=== PATIENT | female | born 1990 | race Caucasian/White ===

== ENCOUNTER 2016-07-07 00:25 | Emergency (ER) | payer MEDICAID ==
[~2016-07-07] VITALS: Ht 160 cm; Wt 58.5 kg
[2016-07-07 00:25] VITALS: Ht 160 cm; Wt 58.5 kg
[~2016-07-07 00:25] MED LIST: CYCL-375 PO; HYDR-3989 PO; IBUP-1724 PO; MELO-273 PO; METH500T6 PO
--- NOTE | 2016-07-07 00:25 | NUR ---
DRESSING APPLIED PACKAGE OF 4X4 DRESSING APPLIED, WRAPPED WITH COBAN FOR PRESSURE. SATURATED THROUGH IN A MATTER OF MINUTES WITHOUT DIRECT PRESSURE. WOUND RE-DRESSED WITH SECOND PACKAGE OF 4X4S AND ABD, WRAPPED WITH NEW COBAN, MANUAL PRESSURE APPLIED.
--- NOTE | 2016-07-07 00:25 | NUR ---
BLACKJACK DEALER BLACKJACK DEALER <3 SEC AT THIS TIME. PT ABLE TO MOVE ALL FINGERS.
--- OUTSIDE RECORDS SUMMARY | 2016-07-07 00:29 | XMS REPORT ---
Author Author GENERATED, SYSTEM Organization Unknown Address Unknown Phone Unavailable Care Team Providers Care Patient Financial Counselor Name Role Phone [facility] Unavailable Reason For Visit Chief Complaint CHEST CONGESTION Social History Functional Status Vital Signs Results Problems Encounter Diagnosis No relevant problems exist. Encounters Encounter Diagnosis No relevant problems exist. Plan of Care Procedures * Completed , on 04/29/2012 12:00 AM * Completed , on 04/29/2012 12:00 AM Immunizations No immunizations administered or ordered. Hospital Course Hospital Discharge Instructions Allergies, Adverse Reactions, Alerts * Latex Allergy has not been assessed. * IV Contrast Allergy has not been assessed. Medication Medication reconciliation has not been performed.
--- OUTSIDE RECORDS SUMMARY | 2016-07-07 00:30 | XMS REPORT | Summary of Care ---
Author Author Sebastian Dominique M.D. 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, 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 Thoracic back pain (724.1, M54.6) Status: Active Chronic tonsillitis (474.00, J35.01) Status: Active Esophageal reflux (530.81, K21.9) Status: Active Chronic nasopharyngitis (472.2, J31.1) Status: Active Adenotonsillar hypertrophy (474.10, J35.3) Status: Active Nasal folliculitis (704.8, L72.9) Status: Active Medications Name Dates Details Lyrica 150 MG Oral Capsule * Start 24-Nov-2015 Active Tylenol 325 MG Oral Tablet * Refills: 0 * Start 24-Nov-2015 Active Ibuprofen 200 MG Oral Tablet * Refills: 0 * Start 24-Nov-2015 Active Mupirocin 2 % External Ointment APPLY A SMALL AMOUNT WITH A COTTON SWAB TO AFFECTED NOSTRIL DAILY FOR 2 WEEKS * Quantity: 1 Refills: 0 Sebastian Dominique M.D. Start 24-Nov-2015 Active 22 GM Tube Sulfamethoxazole-Trimethoprim 800-160 MG Oral Tablet 1 po BID * Quantity: 28 Refills: 0 Sebastian Dominique M.D. Start 27-Nov-2015 Active Pantoprazole Sodium 40 MG Oral Tablet Delayed Release TAKE ONE TABLET 30 MINUTES PRIOR TO BREAKFAST EVERY DAY * Quantity: 30 Refills: 5 Sebastian Dominique M.D. Start 22-Dec-2015 Active Allergies and Adverse Reactions Name Dates Details Codeine Derivatives (Allergy) Status: Active Past Medical History Name Dates Details History of amenorrhea (V13.29, Z87.42) Status: Resolved History of Anal fissure (565.0, K60.2) Status: Resolved History of Hair loss (704.00, L65.9) Status: Resolved Procedures Procedure Dates Details History of Ear Pressure Equalization Tube, Insertion, General Anesthesi History of Ear Surgery Procedures not documented Immunization Name Dates Details Immunizations not documented Family History Name Dates Details Family history of mental disorder (V17.0, Z81.8) Status: Active Social History Name Dates Details - Status: Name Dates Details Former smoker Vital Signs Date Test Result Details 24-Nov-2015 15:58 Temperature 98.2 f Status: Comments: Method: Height 63 in Status: Weight 160.25 lb Status: Body Mass Index Calculated 28.39 kg/m2 Status: Body Surface Area Calculated 1.76 m2 Status: Results Date Description Value Details 27-Nov-2015 12:54 NASAL CAVITY CULTURE [id number] Comments: Spotlight At [facility], [id number] [place] [address], [phone], Info Analyst: Leonel Preston D.O., MPHQuest Collection Date/Time: [id number] Results Received Date/Time: [id number] Reported Date/Time: [id number] performed at: [facility] [address] [place], [address], Info Analyst: Leonel Preston D.O., MPHQuest Collection Date/Time: [id number] Results Received Date/Time: Reported Date/Time: CULTURE, FORESTRY FARM LABORER/NASAL SEE NOTE (Abnormal) Comments: CULTURE, FORESTRY FARM LABORER/NASAL MICRO NUMBER: [id number] TEST STATUS: FINAL SPECIMEN SOURCE: NASOPHARYNX SPECIMEN QUALITY: ADEQUATE RESULT: Moderate growth of Staphylococcus aureus COMMENT: Normal oropharyngeal maddie also present. S.aureus ---- INT LATOSHA CIPROFLOXACIN S <=0.5 CLINDAMYCIN S <=0.25 ERYTHROMYCIN S <=0.25 GENTAMICIN S <=0.5 LEVOFLOXACIN S <=0.12 MOXIFLOXACIN S <=0.25 OXACILLIN S <=0.25 1 TETRACYCLINE S <=1 TRIMETHOPRIM/SULFA S <=10 VANCOMYCIN S <=0.5S=Susceptible I=Intermediate R=Resistant *= Not TestedNR=Not Reported NN=See Therapy CommentsTHERAPY COMMENTS Note 1: Oxacillin-susceptible staphylococci are susceptible to other penicillinase-stable penicillins (e.g. Methicillin, Nafcillin), beta- lactam/beta-lactamase inhibitor combinations, and cephems with staphylococcal indications, including Cefazolin.[KS]----- Plan of Care Name Dates Details Planned Observations Planned Goals not documented Planned Encounters Appointment; Provider: Sebastian Dominique M.D. On 26-Jan-2016 15:00 Interventions Provided Medication Changes* Pantoprazole Sodium 40 MG Oral Tablet Delayed Release - Start Instructions Name Dates Details Instructions not documented Encounters Appointment; Sebastian Dominique M.D. Encounter Diagnosis: Problem not documented On 24-Nov-2015 15:00 Appointment; Stefani Marroquin A.P.R.N. Encounter Diagnosis: Problem not documented On 16-Jul-2015 11:35 Appointment; Peggy Boland P.TEddie Encounter Diagnosis: Problem not documented On 11-Jun-2015 09:00 Appointment; Marcus Real P.T. Encounter Diagnosis: Problem not documented On 05-Jun-2015 15:00 Appointment; [facility] D.O. Encounter Diagnosis: Problem not documented On 03-Jun-2015 14:00 Appointment; Rene Duncan D.O. Encounter Diagnosis: Problem not documented On 26-May-2015 15:15 Appointment; [facility] D.O. Encounter Diagnosis: Problem not documented On 03-May-2014 10:45 Appointment; [facility] D.O. Encounter Diagnosis: Problem not documented On 05-Apr-2014 13:45 Appointment; [facility] D.O. Encounter Diagnosis: Problem not documented On 08-Mar-2014 14:45 Appointment; [facility] D.O. Encounter Diagnosis: Problem not documented On 05-Mar-2014 15:45 Appointment; [facility] D.O. Encounter Diagnosis: Problem not documented On 19-Feb-2014 13:30 Appointment; [facility] D.O. Encounter Diagnosis: Problem not documented On 21-Jan-2014 13:00 Appointment; [facility] D.O. Encounter Diagnosis: Problem not documented On 07-Jan-2014 14:45
--- OUTSIDE RECORDS SUMMARY | 2016-07-07 00:30 | XMS REPORT | Summary of Care ---
Author Author Stefani Marroquin APRN Organization Unknown Address [address] [place] [id number] Phone Unavailable Care Team Providers Care Resistance Welder Name Role Phone Stefani Marroquin APRN Unavailable Unavailable [facility] Unavailable Unavailable Unavailable Functional Status Functional Status Health Issues* Name Dates Details Functional status health issues are not documented Status: Cognitive Status Health Issues* Name Dates Details Cognitive status health issues are not documented Status: Problems Name Dates Details Chronic headaches (784.0, R51) Status: Active Migraine (346.90, G43.909) Status: Active Lumbosacral strain, initial encounter (846.0, S39.012A) Status: Active 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 Quantity: 14 Stefani Marroquin APRN* Started 26-May-2015 ActiveMeloxicam 7.5 MG Oral Tablet TAKE 1 TABLET DAILY NEEDED * Quantity: 30 Refills: 0 Stefani Marroquin APRN* Started 03-Jun-2015 ActiveMethocarbamol 500 MG Oral Tablet TAKE 1 TABLET BY MOUTH EVERY 8 HOURS NEEDED FOR SPASM * Quantity: 30 Refills: 0 Stefani Marroquin APRN* Started 03-Jun-2015 Active Allergies and Adverse Reactions Name Dates Details Codeine Derivatives Status: Active Past Medical History Name Dates Details History of amenorrhea (V13.29, Z87.42) Status: Resolved History of Anal fissure (565.0, K60.2) Status: Resolved History of Hair loss (704.00, L65.9) Status: Resolved Procedures Procedure Dates Details Procedures not documented Immunization Name Dates Details Immunizations not documented Social History Name Dates Details Smoking Status* Former smoker Vital Signs Date Test Result Details 16-Jul-2015 11:42 BP Systolic 122 mm[Hg] Status: BP Diastolic 88 mm[Hg] Status: Temperature 98.6 f Status: Heart Rate 126 /min Status: Respiration Rate 16 /min Status: O2 SAT 98 % Status: Results Date Description Value Details Results not documented Plan of Care Planned Observations* Name Dates Details Planned Goals not documented Goal Instructions * Instructions not documented Encounters Appointment; Stefani Marroquin Encounter Diagnosis: Problem not documented On 16-Jul-2015 11:35 Appointment; Peggy Boland Encounter Diagnosis: Problem not documented On 11-Jun-2015 09:00 Appointment; Marcus Real Encounter Diagnosis: Problem not documented On 05-Jun-2015 15:00 Appointment; [facility] Encounter Diagnosis: Problem not documented On 03-Jun-2015 14:00 Appointment; Rene Duncan Encounter Diagnosis: Problem not documented On 26-May-2015 15:15 Appointment; [facility] Encounter Diagnosis: Problem not documented On 03-May-2014 10:45 Appointment; [facility] Encounter Diagnosis: Problem not documented On 05-Apr-2014 13:45 Appointment; [facility] Encounter Diagnosis: Problem not documented On 08-Mar-2014 14:45 Appointment; [facility] Encounter Diagnosis: Problem not documented On 05-Mar-2014 15:45 Appointment; [facility] Encounter Diagnosis: Problem not documented On 19-Feb-2014 13:30 Appointment; [facility] Encounter Diagnosis: Problem not documented On 21-Jan-2014 13:00 Appointment; [facility] Encounter Diagnosis: Problem not documented On 07-Jan-2014 14:45 Appointment; [facility] Encounter Diagnosis: Problem not documented On 07-Dec-2013 13:30 Appointment; [facility] Encounter Diagnosis: Problem not documented On 28-Nov-2013 09:30 Appointment; Amber Chacon Encounter Diagnosis: Problem not documented On 20-Nov-2013 12:30 Appointment; [facility] Encounter Diagnosis: Problem not documented On 14-Nov-2013 10:45 Appointment; [facility] Encounter Diagnosis: Problem not documented On 06-Nov-2013 15:45 Appointment; [facility] Encounter Diagnosis: Problem not documented On 02-Nov-2013 13:15
--- OUTSIDE RECORDS SUMMARY | 2016-07-07 00:30 | XMS REPORT | Continuity of Care Document ---
Author Author [facility] Organization [facility] Address Unknown Phone Unavailable Allergies Active Description Code Type Severity Reaction Onset Reported/Identified Relationship to Patient Clinical Status Yes codeine CODEINE Drug Allergy Unknown N/A 03/18/2008 Yes No Known Contrast Allergies No Known Contrast Allergies Drug Allergy Unknown N/A 03/18/2008 Yes No Known Food Allergies No Known Food Allergies Drug Allergy Unknown N/A 03/18/2008 Yes NO KNOWN LATEX ALLERGY/SENSITI NO KNOWN LATEX ALLERGY/SENSITI Drug Allergy Unknown N/A 2008 Yes codeine codeine Drug Allergy Unknown ITCHING, RASH 10/12/2013 Medications Problems Date Dx Coded Attending Type Code Diagnosis Diagnosed By 10/18/2013 Byron HINDS, Navin Moody 648.91 OTH CURR COND-DELIVERED 10/18/2013 Navin Matthews MD 648.93 OTH CURR COND-ANTEPARTUM 10/18/2013 Navin Matthews MD 664.81 OB PERINEAL TRAU NEC-DEL 10/18/2013 Navin Matthews MD V02.51 GROUP B STREPT CARRIER/SUSPECTED CARRIER 10/18/2013 Navin Matthews MD V14.5 HX-NARCOTIC ALLERGY 10/18/2013 Navin Matthews MD V27.0 DELIVER-SINGLE LIVEBORN 12/25/2014 Navin Matthews MD O48.0 POST-TERM 12/25/2014 Navin Matthews MD O70.1 SECOND DEGREE PERINEAL LACERATION DURING DELIVERY 12/25/2014 Navin Matthews MD Z34.93 ENCNTR FOR SUPRVSN OF NORMAL PREG, UNSP, THIRD TRIMESTER 12/25/2014 Navin Matthews MD Z37.0 SINGLE LIVE 12/25/2014 Navin Matthews MD Z3A.41 41 WEEKS GESTATION OF Procedures Code Description Performed By Performed On 75.69 REPAIR OB LACERATION NEC Navin Matthews MD 10/18/2013 [id number] REPAIR FEMALE PERINEUM, EXTERNAL APPROACH Byron HINDS, Navin Price 12/25/2014 [id number] DELIVERY OF PRODUCTS OF CONCEPTION, EXTERNAL APPRO Byron HINDS, Navin Price 12/25/2014 Results Test Result Range CBC - 10/17/13 22:30 MEAN CELL HGB 31.3 pg 27.0-33.0 MEAN CELL HGB CONCENTRATION 33.2 g/dL 32.0-37.0 MEAN CELL VOLUME 94.2 fl 80.0-100.0 RED BLOOD CELL 3.64 m/cumm 4.00-6.00 RED CELL DISTRIBUTION WIDTH 15.1 % 11.0- 15.6 WHITE BLOOD CELL 10.6 k/cumm 5.0-10.0 HEMOGLOBIN 11.4 gm/dL 12.0-16.0 HEMATOCRIT 34.3 % 37.0-47.0 PLATELET COUNT 256 k/cumm 150-400 CORD VENOUS BLOOD GAS - 10/18/13 11:45 VENOUS CORD BLOOD BASE EXCESS -2.1 meq/L -5.8-0.7 COMMENT VENOUS VENOUS CORD BLOOD HCO3 22.9 meq/L 17.4- 25.4 VENOUS CORD BLOOD PCO2 40 mm Hg 28-57 VENOUS CORD BLOOD PH 7.38 7.23-7.46 VENOUS CORD BLOOD PO2 33 mm Hg 15-42 VENOUS CORD BLOOD O2 SAT 73 % 14-75 CORD ARTERIAL BLOOD GAS - 10/18/13 11:45 ARTERIAL CORD BLD BASE EXCESS -2.3 meq/L -7.6-1.3 COMMENT ARTERIAL ARTERIAL CORD BICARBONATE 26.2 meq/L 16.0 -27.1 ARTERIAL CORD BLOOD PCO2 61 mm Hg 32-69 ARTERIAL CORD BLOOD PH 7.25 7.14-7.40 ARTERIAL CORD BLOOD PO2 15.9 mm Hg 8-33 ARTERIAL CORD BLOOD O2 SAT 20 % 5-59 HEMOGLOBIN - 10/18/13 15:18 MEAN CELL VOLUME 91.5 fl 80.0-100.0 HEMOGLOBIN 10.3 gm/dL 12.0-16.0 CBC - 12/25/14 01:45 MEAN CELL HGB 30.5 pg 27.0-33.0 MEAN CELL HGB CONCENTRATION 33.4 g/dL 32.0-37.0 MEAN CELL VOLUME 91.1 fl 80.0-100.0 RED BLOOD CELL 3.71 m/cumm 4.00-6.00 RED CELL DISTRIBUTION WIDTH 13.2 % 11.0- 15.6 WHITE BLOOD CELL 13.8 k/cumm 5.0-10.0 HEMOGLOBIN 11.3 gm/dL 12.0-16.0 HEMATOCRIT 33.8 % 37.0-47.0 PLATELET COUNT 288 k/cumm 150-400 CORD ARTERIAL BLOOD GAS - 12/25/14 03:07 ARTERIAL CORD BLD BASE EXCESS -0.8 meq/L -7.6-1.3 COMMENT ARTERIAL ARTERIAL CORD BICARBONATE 26.5 meq/L 16.0 -27.1 ARTERIAL CORD BLOOD PCO2 54 mm Hg 32-69 ARTERIAL CORD BLOOD PH 7.31 7.14-7.40 ARTERIAL CORD BLOOD PO2 21.2 mm Hg 8-33 ARTERIAL CORD BLOOD O2 SAT 37 % 5-59 CORD VENOUS BLOOD GAS - 12/25/14 03:07 VENOUS CORD BLOOD BASE EXCESS -1.3 meq/L -5.8-0.7 COMMENT VENOUS VENOUS CORD BLOOD HCO3 23.4 meq/L 17.4- 25.4 VENOUS CORD BLOOD PCO2 39 mm Hg 28-57 VENOUS CORD BLOOD PH 7.39 7.23-7.46 VENOUS CORD BLOOD PO2 37 mm Hg 15-42 VENOUS CORD BLOOD O2 SAT 80 % 14-75 HEMOGLOBIN - 12/25/14 09:23 MEAN CELL VOLUME 90.2 fl 80.0-100.0 HEMOGLOBIN 9.5 gm/dL 12.0-16.0 CBC W/DIFF - 02/14/16 20:25 BASOPHIL # 0.2 k/cumm 0.0-0.2 BASOPHIL % 1 % 0-1 EOSINOPHIL # 0.2 k/cumm 0.1-0.5 EOSINOPHIL % 1 % 2-4 GRANULOCYTE # 13.5 k/cumm 2.0-9.0 LYMPHOCYTE # 5.2 k/cumm 1.0-4.0 LYMPHOCYTE % 26 % 20-30 MEAN CELL HGB 30.6 pg 27.0-33.0 MEAN CELL HGB CONCENTRATION 33.1 g/dL 32.0-37.0 MEAN CELL VOLUME 92.4 fl 80.0-100.0 MONOCYTE # 0.8 k/cumm 0.1-1.0 MONOCYTE % 4 % 4-6 RED BLOOD CELL 4.97 m/cumm 4.00-6.00 RED CELL DISTRIBUTION WIDTH 11.8 % 11.0- 15.6 WHITE BLOOD CELL 20.1 k/cumm 5.0-10.0 HEMOGLOBIN 15.2 gm/dL 12.0-16.0 HEMATOCRIT 45.9 % 37.0-47.0 PLATELET COUNT 498 k/cumm 150-400 REACTIVE LYMPH NOTED MANUAL DIFF(R) - 02/14/16 20:25 BAND % 4 % 0-10 DIFFERENTIAL MANUAL METAMYELOCYTE % 1 % RBC MORPH NOTED SEGMENTED NEUTROPHIL % 63 % 50-70 CHEM/HEM PROFILE-BEDSIDE - 02/14/16 20:26 POTASSIUM 3.9 mmol/L 3.5-5.3 METHOD Bedside ANION GAP 16 mmol/L 10-20 METHOD Bedside GLUCOSE 105 mg/dL 70-99 BLOOD UREA NITROGEN 17 mg/dL 7-20 CREATININE 0.7 mg/dL 0.6-1.0 HEMOGLOBIN 16.0 gm/dL 12.0-16.0 HEMATOCRIT 47.0 % 37.0-47.0 SODIUM 137 mmol/L 135-148 CHLORIDE 96 mmol/L 98-110 CARBON DIOXIDE 30 mmol/L 21-32 CALCIUM IONIZED 4.6 mg/dL 4.5-5.3 Encounters ACCT No. Visit Date/Time Discharge Status Pt. Type Provider Facility Loc./Unit Complaint [id number] 02/14/2016 23:14:00 2015 14:13:00 DIS Outpatient Gómez HINDS, [facility] W.O8TN [id number] 12/25/2014 00:58:00 2014 15:38:00 DIS Inpatient Byron HINDS, [facility] W.5WH [id number] 12/17/2014 21:27:00 2014 05:23:00 DIS Outpatient Byron HINDS, [facility] W.2WW [id number] 10/18/2013 05:05:00 2013 14:30:00 DIS Inpatient Byron HINDS, [facility] W.4TN [id number] 10/11/2013 23:09:00 2013 02:12:00 DIS Emergency Byron HINDS, [facility] W.2WOBED [id number] 09/18/2013 16:28:00 2013 21:39:00 DIS Emergency Byron HINDS, Navin [facility] W.2WOBED [id number] 08/28/2013 12:28:00 2013 12:28:00 DIS Outpatient Flora HINDS, [facility] WJEEVAN
--- OUTSIDE RECORDS SUMMARY | 2016-07-07 00:30 | XMS REPORT | Summary of Care ---
Author Author Sebastian Dominique M.D. Unknown Address Unknown Phone Unavailable Care Team Providers Care Electronics Warfare Technician Name Role Phone Catina Paula, Angelina Unavailable [...] Active Esophageal reflux (530.81, K21.9) Status: Active Nasal folliculitis (704.8, L72.9) Status: Active Chronic nasopharyngitis (472.2, J31.1) Status: Active Adenotonsillar hypertrophy (474.10, J35.3) Status: Active Medications Name Dates Details Lyrica [...] Insertion, General Anesthesi History of Ear Surgery PROTIME PANEL 7000 Ordered: 26-Jan-2016 PTT 7500 Ordered: 26-Jan-2016 Immunization Name Dates Details Immunizations not documented Family History Name Dates Details Family history of mental disorder (V17.0, Z81.8) Status: Active Social History Name Dates Details - Status: Name Dates Details Former smoker Vital Signs Date Test Result Details No Known Vitals to report Results Date Description Value Details 26-Jan-2016 16:05 CBC w/ Auto Diff 7150 Comments: DOS 02/10/16 AT [facility] WBC 10.1 K/uL Range: 4.5-11.0 RBC 4.53 mil/uL Range: 3.60-5.00 HGB 14.5 g/dL Range: 12.0-16.0 HCT 41.6 % Range: 36.0-48.0 MCV 91.9 fL Range: 80.0-99.0 MCH 32.0 pg Range: 27.3-32.5 MCHC 34.8 % Range: 32.0-36.0 RDW 13.0 % Range: 11.6-14.8 PLATELETS 369 K/uL Range: 150-400 MPV 6.9 fL Range: 6.0-11.0 %NEUTRO 64.8 % Range: 37.0-80.0 %LYMPHS 22.0 % Range: 13.0-50.0 %MONO 6.8 % Range: 0.0-12.0 %EOS 2.9 % Range: 0.0-7.0 %BASO 0.8 % Range: 0.0-2.5 %XIANG 2.7 % Range: 0.0-5.0 NEUTRO 6.5 K/uL Range: 2.0-6.9 LYMPHS 2.2 K/uL Range: 0.6-3.4 MONOS 0.7 K/uL Range: 0.0-0.9 EOS 0.3 K/uL Range: 0.0-0.7 BASO 0.1 K/uL Range: 0.0-0.2 Plan of Care Name Dates Details Planned Observations Planned Goals not documented Planned Encounters Appointment; Provider: Sebastian Dominique M.D. On 10-Feb-2016 11:00 Interventions Provided Labs/Procedures/Imaging* PROTIME PANEL 7000; To be Done: 26 Jan 2016 * PTT 7500; To be Done: 26 Jan 2016 * CBC w/ Auto Diff 7150; Done: Jan 26 2016 3:53PM Instructions Name Dates Details Instructions not documented Encounters Appointment; Sebastian Doimnique M.D. Encounter Diagnosis: Problem not documented On 22-Dec-2015 15:00 Appointment; Sebastian Dominique M.D. Encounter Diagnosis: Problem [...]
--- OUTSIDE RECORDS SUMMARY | 2016-07-07 00:30 | XMS REPORT | Summary of Care ---
Author Author Sebastian Dominique M.D. Unknown Address Unknown Phone Unavailable Care Team Providers Care Fence Machine Operator Name Role Phone Catina Paula, Angelina Unavailable [...] Active Adenotonsillar hypertrophy (474.10, J35.3) Status: Active Post-operative nausea and vomiting (787.01, R11.2) Status: Active Post-op pain (338.18, G89.18) Status: Active Post-tonsillectomy hemorrhage (998.11, J95.89) Status: Active Medications Name Dates Details Lyrica [...] po BID * Quantity: 28 Refills: 0 Catina Paula Sebastian A * Start 27-Nov-2015 Active Pantoprazole Sodium 40 MG Oral Tablet Delayed Release TAKE ONE TABLET 30 MINUTES PRIOR TO BREAKFAST EVERY DAY * Quantity: 30 Refills: 5 Catina Mendoza., Sebastian A * Start 22-Dec-2015 Active Amoxicillin 500 MG Oral Capsule 1 po TID for 10 days * Quantity: 30 Refills: 0 Catina Paula, Sebastian A * Start 10-Feb-2016 Active Promethazine HCl - 12.5 MG Oral Tablet Take 1 tablet every 6 hours as needed for nausea. * Quantity: 12 Refills: 0 Bongeddnannette Paula, Sebastian A * Start 10-Feb-2016 Active PredniSONE 20 MG Oral Tablet 2 PO x 2 days then 1 Po x 3 days * Quantity: 7 Refills: 1 Catina Mendoza., Sebastian A * Start 10-Feb-2016 Active Percocet 7.5-325 MG Oral Tablet 1-2 PO q 4 hrs prn * Quantity: 60 Refills: 0 Catina Paula, Sebastian A * Start 16-Feb-2016 Active Allergies and Adverse Reactions Name Dates Details Codeine Derivatives (Allergy) Status: Active Past Medical History Name Dates Details History of amenorrhea (V13.29, Z87.42) Status: Resolved History of Anal fissure (565.0, K60.2) Status: Resolved History of Hair loss (704.00, L65.9) Status: Resolved Procedures Procedure Dates Details History of Ear Pressure Equalization Tube, Insertion, General Anesthesi History of Ear Surgery History of Tonsillectomy With Adenoidectomy Procedures not documented Immunization Name Dates Details Immunizations not documented Family History Name Dates Details Family history of mental disorder (V17.0, Z81.8) Status: Active Social History Name Dates Details - Status: Name Dates Details Former smoker Vital Signs Date Test Result Details No Known Vitals to report Results Date Description Value Details 26-Jan-2016 16:05 CBC w/ Auto Diff 7150 Comments: DOS 02/10/16 AT [facility] WBC 10.1 K/uL Range: 4.5-11.0 RBC 4.53 [...] Range: 0.0-0.7 BASO 0.1 K/uL Range: 0.0-0.2 16:13 PROTIME PANEL 7000 Comments: DOS 02/10/16 AT [facility] PROTIME 12.4 secs Range: 12.0-14.9 INR 0.93 16:14 PTT 7500 Comments: DOS 02/10/16 AT [facility] PTT 30.5 secs Range: 23.0-34.7 16-Feb-2016 15:30 HCT 7115 HCT 35.5 % (Below low threshold) Range: 36.0-48.0 15:30 HGB 7110 HGB 12.4 g/dL Range: 12.0-16.0 Plan of Care Name Dates Details Planned Observations Planned Goals not documented Interventions Provided Labs/Procedures/Imaging* HCT 7115; Done: Feb 16 2016 3:09PM * HGB 7110; Done: Feb 16 2016 3:09PM Instructions Name Dates Details Instructions not documented Encounters Appointment; Sebastian Dominique M.D. Encounter Diagnosis: Problem not documented On 26-Jan-2016 15:00 Appointment; Sebastian Dominique M.D. Encounter Diagnosis: Problem not documented On 22-Dec-2015 15:00 Appointment; Sebastian Dominique M.D. Encounter Diagnosis: Problem not documented On 24-Nov-2015 15:00 Appointment; Stefani Marroquin A.P.R.N. Encounter Diagnosis: Problem not documented On 16-Jul-2015 11:35 Appointment; Peggy Boland P.T.A. Encounter Diagnosis: Problem not documented On 11-Jun-2015 [...]
--- OUTSIDE RECORDS SUMMARY | 2016-07-07 00:30 | XMS REPORT | Continuity of Care Document ---
Author Author [facility] Address Unknown Phone Unavailable Care Team Providers Care Shoe Cementer Name Role Phone JIMENA WEAVER Primary Care Physician [phone] Insurance Providers Payer Name Policy Number Subscriber Name Relationship [facility] [id number] June 22 Self / Same As Patient Advance Directives Directive Response Recorded Date/Time Advanced Directives No 02/10/16 9:46am Problems Active Problems Medical Problem Onset Date Status Adenotonsillar hypertrophy Unknown Acute Recurrent tonsillitis Unknown Acute Medications Current Home Medications Medication Dose Units Route Directions Days/Qty Instructions Start Date Pregabalin 150 Mg 150 Mg ORAL Twice A Day 60 02/10/16 Milnacipran Hcl 25 Mg 25 Mg ORAL Daily 60 02/10/16 Social History Social History Problem Response Recorded Date/Time Onset Date Status Occupation or Former Occupation [employer] 02/10/2016 9:52am Query Response Start Date Stop Date Smoking Status Current every day smoker Hospital Discharge Instructions No hospital discharge instructions. Plan of Care Discharge Date 02/10/16 2:59pm Prescriptions See Medication Section Functional Status No functional status results. Allergies, Adverse Reactions, Alerts Allergen Type Severity Reaction Status Last Updated Codeine Allergy Unknown Active 02/09/16 Immunizations No immunization records. Vital Signs Acute Vital Signs Vital Response Date/Time Temperature (Fahrenheit) 98.4 02/10/2016 2:29pm Pulse 112 bpm 02/10/2016 2:55pm Respirations 18 02/10/2016 2:55pm Height 5 ft 3 in Weight 156 lb Body Mass Index 27.0 kg/m^2 Results No known relevant diagnostic tests, laboratory data and/or discharge summary. Procedures No known history of procedures. Encounters Encounter Location Arrival/Admit Date Discharge/Depart Date Attending Provider Departed [facility] Day [facility] 02/10/16 9:36am 02/10/16 2: 59pm Sebastian Dominique MD Recent Diagnosis Adenotonsillar hypertrophy Recurrent tonsillitis
--- OUTSIDE RECORDS SUMMARY | 2016-07-07 00:30 | XMS REPORT | Summary of Care ---
Author Author Sebastian Dominique M.D. Organization Unknown Address Unknown Phone Unavailable Care Team Providers Care Ball Maker Name Role Phone Catina Paula, Angelina Unavailable Unavailable Dahiana Ballesteros Unavailable Unavailable Unavailable Unavailable Functional Status Name [...] Thoracic back pain (724.1, M54.6) Status: Active Esophageal reflux (530.81, K21.9) Status: Active Nasal folliculitis (704.8, L72.9) Status: Active Adenotonsillar hypertrophy (474.10, J35.3) Status: Active Post-operative nausea and vomiting (787.01, R11.2) Status: Active Chronic tonsillitis (474.00, J35.01) Status: Active Post-op pain (338.18, G89.18) Status: Active Post-tonsillectomy hemorrhage (998.11, J95.89) Status: Active Chronic nasopharyngitis (472.2, J31.1) Status: Active Medications Name Dates Details Lyrica [...] M.D. Start 24-Nov-2015 Active 22 GM Tube Pantoprazole Sodium 40 MG Oral Tablet Delayed Release TAKE ONE TABLET 30 MINUTES PRIOR TO BREAKFAST EVERY DAY * Quantity: 30 Refills: 5 Catina Mendoza., Sebastina A * Start 22-Dec-2015 Active Gentamicin 80 mg in 45cc of [place] Saline [place] 2 squirts each nostril TID * Quantity: 1 Refills: 0 Catina Paula, Sebastian A * Start 01-Apr-2016 Active Minocycline HCl - 100 MG Oral Tablet 1 po BID * Quantity: 60 Refills: 0 Catina Mendoza., Sebastian A * Start 01-Apr-2016 Active Allergies and Adverse Reactions Name Dates [...] smoker Vital Signs Date Test Result Details 04-Mar-2016 09:49 Temperature 98.8 f Status: Comments: Method: Heart Rate 154 /min Status: Comments: Location: ; Weight 154 lb Status: Physical Findings 85 Status: Comments: O2 Saturation Body Mass Index Calculated 27.28 kg/m2 Status: Body Surface Area Calculated 1.73 m2 Status: Results Date Description Value Details Results not documented Plan of Care Name Dates Details Planned Observations Planned Goals not documented Interventions Provided Medication Changes* Gentamicin 80 mg in 45cc of [place] Saline [place] - Start * Minocycline HCl - 100 MG Oral Tablet - Start Instructions Name Dates Details Instructions not documented Encounters Appointment; Ben Falcon M.D. Encounter Diagnosis: Problem not documented On 04-Mar-2016 09:45 Appointment; Sebastian Dominique M.D. Encounter Diagnosis: Problem not documented On 16-Feb-2016 14:30 Appointment; Sebastian Dominique M.D. Encounter Diagnosis: Problem [...]
--- OUTSIDE RECORDS SUMMARY | 2016-07-07 00:30 | XMS REPORT | Summary of Care ---
Author Author Sebastian Dominique M.D. Unknown Address Unknown Phone Unavailable Care Team Providers Care Web Development Manager Name Role Phone Catina Paula, Angelina Unavailable [...] Thoracic back pain (724.1, M54.6) Status: Active Nasal folliculitis (704.8, L72.9) Status: Active Chronic nasopharyngitis (472.2, J31.1) Status: Active Chronic tonsillitis (474.00, J35.01) Status: Active Adenotonsillar hypertrophy (474.10, J35.3) Status: [...] M.D. Start 24-Nov-2015 Active 22 GM Tube Allergies and Adverse Reactions Name Dates Details Codeine Derivatives (Allergy) Status: Active Past Medical History Name Dates Details History of amenorrhea (V13.29, Z87.42) Status: Resolved History of Anal fissure (565.0, K60.2) Status: Resolved History of Hair loss (704.00, L65.9) Status: Resolved Procedures Procedure Dates Details History of Ear Pressure Equalization Tube, Insertion, General Anesthesi History of Ear Surgery NASAL CAVITY CULTURE [id number] Ordered: 24-Nov-2015 Immunization Name Dates Details Immunizations not documented [...] Encounters Appointment; Provider: Sebastian Dominique M.D. On 22-Dec-2015 15:00 Interventions Provided Medication Changes* Cyclobenzaprine HCl - 10 MG Oral Tablet - Completed * Meloxicam 7.5 MG Oral Tablet - Completed * Methocarbamol 500 MG Oral Tablet - Completed * Mupirocin 2 % External Ointment - Start Labs/Procedures/Imaging* NASAL CAVITY CULTURE [id number]; To be Done: 24 Nov 2015 Instructions Name Dates Details Instructions not documented Encounters Appointment; Stefani Marroquin A.P.R.N. Encounter Diagnosis: Problem [...] not documented On 21-Jan-2014 13:00 Appointment; Solo Huose D.O. Encounter Diagnosis: Problem not documented On 07-Jan-2014 14:45 Appointment; Solo House D.O. Encounter Diagnosis: Problem not documented On 07-Dec-2013 13:30 Appointment; Solo House D.O. Encounter Diagnosis: Problem not documented On 28-Nov-2013 09:30
--- OUTSIDE RECORDS SUMMARY | 2016-07-07 00:30 | XMS REPORT | Summary of Care ---
Author Author Sebastian Dominique M.D. Unknown Address Unknown Phone Unavailable Care Team Providers Care Package Wrapper Name Role Phone Catina Paula, Angelina Unavailable [...] History of Ear Surgery NASAL CAVITY CULTURE [id number] Ordered: 24-Nov-2015 Immunization Name Dates Details Immunizations [...] Ointment - Start Labs/Procedures/Imaging* NASAL CAVITY CULTURE [id number]; To be Done: 24 Nov 2015 Instructions [...]
--- OUTSIDE RECORDS SUMMARY | 2016-07-07 00:30 | XMS REPORT ---
Author Author [employer] Organization Unknown Address Unknown Phone Unavailable Care Team Providers Care Advertising Clerk Name Role Phone [facility] PP Unavailable Reason For Visit Chief Complaint HEADACHE Social History Functional Status Vital Signs Results [...]
--- OUTSIDE RECORDS SUMMARY | 2016-07-07 00:31 | XMS REPORT | Summary of Care ---
Author Author Terrie Paula, Ben Organization Unknown Address Unknown Phone Unavailable Care Team Providers Care Conveyor Feeder Name Role Phone Ben Falcon M.D. Unavailable Unavailable Catina Paula, Angelina Unavailable Unavailable [facility] [...] 2 WEEKS * Quantity: 1 Refills: 0 Catina Paula, Sebastian Saul Start 24-Nov-2015 Active 22 GM Tube Sulfamethoxazole-Trimethoprim 800-160 MG Oral Tablet 1 po BID * Quantity: 28 Refills: 0 Bongeddert Carlene Paulade A * Start 27-Nov-2015 Active Pantoprazole Sodium 40 MG Oral Tablet Delayed Release TAKE ONE TABLET 30 MINUTES PRIOR TO BREAKFAST EVERY DAY * Quantity: 30 Refills: 5 Ghulamert Kelly., Sebastian A * Start 22-Dec-2015 Active Amoxicillin 500 MG Oral Capsule 1 po TID for 10 days * Quantity: 30 Refills: 0 Bongeddert Chai, Sebastian A * Start 10-Feb-2016 Active Promethazine HCl - 12.5 MG Oral Tablet Take 1 tablet every 6 hours as needed for nausea. * Quantity: 12 Refills: 0 Bongeddert Chai, Sebastian A * Start 10-Feb-2016 Active PredniSONE 20 MG Oral Tablet 2 PO x 2 days then 1 Po x 3 days * Quantity: 7 Refills: 1 Bongeddnannette Mcbride.Derrick, Sebastian A * Start 10-Feb-2016 Active Percocet 7.5-325 MG Oral Tablet 1-2 PO q 4 hrs prn * Quantity: 60 Refills: 0 Bongeddert Rae.Derrick, Sebastian A * Start 16-Feb-2016 Active Allergies [...] m2 Status: Results Date Description Value Details 16-Feb-2016 15:30 HCT 7115 HCT 35.5 % (Below low threshold) Range: 36.0-48.0 15:30 HGB 7110 HGB 12.4 g/dL Range: 12.0-16.0 Plan of Care Name Dates Details Planned Observations Planned Goals not documented Instructions Name Dates Details Instructions not documented [...]
--- NOTE | 2016-07-07 00:40 | NUR ---
LAB MEASUREMENT AND VERIFICATION ENGINEER HERE TO COLLECT BLOOD FOR LABWORK WHILE IV STARTED. IV STARTED BY WILBERT LEWIS
[2016-07-07] MEDS ORDERED: TETANUS,DIPHTH,a PERTUS (Tdap) 0.5 ML VIAL IM ONE (00:45)
[2016-07-07] MEDS ORDERED: NORMAL SALINE 1,000 ML IV ONE (00:45)
--- NOTE | 2016-07-07 00:45 | NUR ---
EXPERIMENTAL TECHNICIAN/DRESSING PT EXPERIMENTAL TECHNICIAN <3 SEC. PT CONTINUES TO BE ABLE TO MOVE FINGERS. MANUAL PRESSURE CONTINUES TO BE HELD.
[2016-07-07 00:49] LABS: BASOPHILS # (AUTO) 0.1 T/MM3 (0-0.2); BASOPHILS % (AUTO) 0.6 % (0-2); EOSINOPHILS # (AUTO) 0.2 T/MM3 (0-0.5); EOSINOPHILS % (AUTO) 1.9 % (0-4); HCT - HEMATOCRIT 47.6 % (36-46); IMMATURE GRANULOCYTE # (AUTO) 0.02 T/MM3 (0.00-0.03); IMMATURE GRANULOCYTE % (AUTO) 0.2 % (0.0-0.5); LYMPHOCYTES # (AUTO) 4.5 T/MM3 (1-4.8); LYMPHOCYTES % (AUTO) 35.8 % (23-45); MEAN CORPUSCULAR HGB 30.5 UUG (26-34); MEAN CORPUSCULAR HGB CONC(MCHC 33.6 GM/DL (31-37); MEAN CORPUSCULAR VOLUME 90.8 UM3 (80-100); MEAN PLATELET VOLUME 10.1 UM3 (9.4-12.4); MONOCYTES # (AUTO) 1.1 T/MM3 (0-0.8); MONOCYTES % (AUTO) 8.5 % (0-9.0); NEUTROPHILS #(AUTO)-ABSOLUTE 6.7 T/MM3 (1.8-7.7); RED BLOOD COUNT 5.24 M/MM3 (4.00-5.20); WBC - WHITE BLOOD COUNT 12.5 T/MM3 (4.5-11.0)
--- NOTE | 2016-07-07 00:50 | NUR ---
STATUS FRIEND WHO BROUGHT PT IS IS BROUGHT BACK TO THE ROOM. HE IS HERE FOR HER SUPPORT.
--- NOTE | 2016-07-07 00:55 | ERPDOC ---
Departure Disposition Decision Date: July 07, 2016 Disposition Decision Time: 01:00 Disposition: 02 TO [facility] Impression Impression Impression: Primary Impression: Laceration Severity: Severe Condition: Stabilized for Transport Seen By: Physician only Referrals: JIMENA WEAVER (Family) Problems/Meds/Labs Reviewed?: Yes Medications reviewed and manag: Yes Follow up care ordered?: Yes Mental Status: Alert, Oriented Critical Care Note Total Time (mins): 60 Critical Care Spent: [id number] care of pt, Reviewing test results, Discuss the case w/staff, Documenting the MR During this visit the pt was: At Risk of Deterioration HPI - General Medical General Chief Complaint: Laceration Stated Complaint: LAC TO WRIST Time Seen by Provider: 00:31 Source: patient Exam Limitations: no limitations HPI - General Medical Initial Comments 26-year-old female presents to emergency department with a chief complaint of making a large laceration to her left wrist. Patient states that this was a suicide attempt. Patient made a large deep laceration with a razor at home. Patient attempted to stop the bleeding with direct pressure but was unsuccessful. Patient presents the emergency department with continued bleeding. Patient notes a moderate sharp discomfort at the site of laceration. No radiation. No other complaints or associated symptoms. Patient denies homicidal ideation or plan. She denies any other form of self injury or self- harm. Patient states that she just could not take it anymore and made the incision after having an argument with her roommate earlier today. Patient states that she intended to kill herself with the laceration. Occurred At: home Onset: Constant Allergies: Coded Allergies: codeine (Unverified Allergy, Unknown, ITCHING, 07/04/15) Past History Past Medical History Pt denies signifigant [facility] Surgical History General: tonsils Family History Family History: Negative Review of Systems Constitutional Constitutional: DENIES: chills, fever Eyes General: DENIES: erythema, exudate Vision: DENIES: acuity, blurring ENMT Ears: DENIES: drainage, pain Hearing: DENIES: hearing loss Balance: DENIES: ataxia, falling to one side Sinuses: DENIES: congestion, pain Nose: DENIES: nosebleeds, pain Mouth/Throat: DENIES: painful swallowing, sore throat Teeth: DENIES: pain Jaw: DENIES: pain Cardiovascular Cardiac: DENIES: chest pain, dyspnea on exertion Rhythm/Rate: DENIES: irregular beat, palpitations Vascular: DENIES: pedal edema, unilateral swelling Pulmonary Respiratory: DENIES: cough, dyspnea, pleuritic chest pain, sputum GI Upper Abdomen: DENIES: nausea, pain, vomiting Lower Abdomen: DENIES: diarrhea, pain General: DENIES: dysuria, frequency Musculoskeletal General: DENIES: joint pain, tenderness Integumentary Skin: DENIES: itching, rash Neurological General: DENIES: headache, numbness Psychiatric Psychiatric: emotional instability, suicidal ideation/attempt Endocrine Endocrine: DENIES: polydipsia, polyphagia Hematologic/Lymphatic Hematologic/Lymphatic: DENIES: frequent nosebleeds, lymphadenopathy Allergic/Immunological Allergic/Immunoligical: DENIES: allergic reactions, hives Physical Exam General General Nourishment: well nourished, well developed, appears stated age, no acute distress, adult General Body Habitus: well groomed Vitals and Pain First Documented Vital Signs Date Time Temp Pulse Resp B/P Pulse Ox O2 Delivery O2 Flow Rate FiO2 07/07/16 00:25 98.4 119 20 116/117 95 Room Air Weight: Kilograms: Height (feet): 5 Height (inches): 3 Triage Pain Scale: RN VS reviewed by Provider: Yes Normal Exams: Head: Normocephalic w/o trauma Eyes: Pupils are PERRLA w/ EOMI, No scleral icterus, irritation, or foreign bodies noted ENMT: No facial trauma, nasal exudates, pharyngeal erythema, or exudates are noted Dental: No fractured, loose, or missing teeth noted Neck: Full range of motion, without adenopathy, JVD, bruits or thyromegaly Chest/Resp: Clear all ryder, with good airflow, and symmetry bilaterally CV: Regular rate and rhythm, without murmur or gallop, Pulses 2+ all extremities, capillary refill, <2 seconds all ext., no pedal edema noted Abdomen: Bowel sounds positive, soft, non-tender, non-distended, no hepatosplenomegaly, masses or bruits noted Lymphatic: No lymphadenopathy, or lymphedema noted Musculoskeletal: No tenderness, or deformity noted, good range of motion, all extremities Integumentary: No rashes, hives, or bruising noted, hair and nails, without abnormality Neurologic: Patient is alert, and oriented, cranial nerves, motor/sensory/ cerebellar, exams w/o gross deficits, to observation Psychiatric: Patient exhibits, appropriate attention, emotion and affect Integumentary (brief) Comments Large approximately 5 cm laceration to the L wrist. + Active brisk bleeding present. Unable to assess for tendon involvement but patient with good movement of extremity. sensation intact. cap refill normal. no fb. concern for arterial injury due to brisk red bleeding and depth of laceration. Direct pressure applied to wound with pressure dressing which is successful. Differential Diagnoses Considering: Depression, Other (Laceration/Arterial injury/suicide attempt/) Progress Results/Orders Orders Procedure Category Date Status Time Cbc W/Auto LAB 07/07/16 Complete Diff-Reflex Manual Bmp - Basic Metabolic LAB 07/07/16 Complete Panel Type And Screen BBK 07/07/16 Complete 00:31 Normal Saline (Normal PHA 07/07/16 In Process Saline Iv) 00:45 Tetanus,Diphth,A PHA 07/07/16 Complete Pertus (Tdap) (Adacel) 00:45 Lab Results Laboratory Tests Test 07/07/16 00:43 White Blood Count 12.5T/MM3 Red Blood Count 5.24M/MM3 Hemoglobin 16.0GM/DL Hematocrit 47.6% Mean Corpuscular Volume 90.8UM3 Mean Corpuscular Hemoglobin 30.5UUG Mean Corpuscular Hemoglobin Concent 33.6GM/DL RDW Standard Deviation 40.9FL Platelet Count 412T/MM3 Mean Platelet Volume 10.1UM3 Immature Granulocyte % (Auto) 0.2% Neutrophils (%) (Auto) 53.0% Lymphocytes (%) (Auto) 35.8% Monocytes (%) (Auto) 8.5% Eosinophils (%) (Auto) 1.9% Basophils (%) (Auto) 0.6% Absolute Immature Granulocyte (auto 0.02T/MM3 Absolute Neutrophils (auto) 6.7T/MM3 Absolute Lymphocytes (auto) 4.5T/MM3 Absolute Monocytes (auto) 1.1T/MM3 Absolute Eosinophils (auto) 0.2T/MM3 Absolute Basophils (auto) 0.1T/MM3 Turbidity < 20 Sodium Level 151MEQ/L Potassium Level 4.0MEQ/L Chloride Level 107MEQ/L Carbon Dioxide Level 24MEQ/L Anion Gap 20MEQ/L Blood Urea Nitrogen 6.0MG/DL Creatinine 0.7MG/DL Glomerular Filtration Rate Calc 100 BUN/Creatinine Ratio 9RATIO Glucose Level 100MG/DL Calculated Osmolality 288MOSM/KG Calcium Level 9.5MG/DL Icterus Index < 2 Chemistry Specimen Hemolysis < 15 Medications Current ED Medications Sodium Chloride (Normal Saline IV) 1,000 ml @ 999 mls/hr Q1H1M ONCE IV Last administered on 07/07/16 00:45; Start 07/07/16 at 00:45; Stop 07/07/16 at 01:45 Diphtheria/ Tetanus/Acell Pertussis (Adacel) 0.5 ml O ONCE IM Last administered on 07/07/16 01:08; Start 07/07/16 at 00:45; Stop 07/07/16 at 00:46; Status DC Progress Progress Direct pressure was applied to the wound following initial evaluation of wound. Direct pressure has controlled the bleeding currently. There is concern for potential arterial injury due to the amount of brisk bleeding that was present when the pressure dressing was applied. Patient is given 1 L normal saline intravenously. Patient's tetanus status is updated. Patient is discussed with Dr. Belcher of Trauma Surgery do the concern for potential arterial involvement. Pressure dressing is currently controlling bleeding at this time. Dr. Belcher has accepted the patient to [facility] for further evaluation and treatment. Patient is in agreement with the current plan of management. Patient is currently stable for transfer to [facility]. Patient was accepted as a level II trauma. Risk versus benefit of transfer is discussed in detail with the patient who verbalizes agreement and understanding. 60 minutes of critical care time was assessed to the patient due the need for transfer to a trauma center. Patient also required repeated assessment a bedside, complex medical decision-making, and had the potential for decompensation. CAMILLE BABIN DO July 07, 2016 00:54
[2016-07-07 00:57] LABS: ANION GAP 20 MEQ/L (5-15); BUN/CREATININE RATIO 9 RATIO (6-26); CALCIUM 9.5 MG/DL (8.4-10.2); CHLORIDE 107 MEQ/L (98-107); CO2 - CARBON DIOXIDE 24 MEQ/L (22-30); CREATININE 0.7 MG/DL (0.7-1.2); GLOMERULAR FILTRATION RATE 100; GLUCOSE 100 MG/DL (65-110); SODIUM 151 MEQ/L (134-144)
--- OUTSIDE RECORDS SUMMARY | 2016-07-07 01:07 | XMS REPORT ---
Author Author [employer] Organization Unknown Address Unknown Phone Unavailable Care Team Providers Care Railroad Car Loader Name Role Phone [facility] PP Unavailable Reason For Visit Chief Complaint [...]
--- OUTSIDE RECORDS SUMMARY | 2016-07-07 01:07 | XMS REPORT ---
Author Author [employer] [employer] Organization Unknown Address Unknown Phone Unavailable Care Team Providers Care Correctional Agency Director Name Role Phone [facility] PP Unavailable Reason For Visit Chief [...]
--- OUTSIDE RECORDS SUMMARY | 2016-07-07 01:08 | XMS REPORT | Continuity of Care Document ---
Author Author [facility] Organization [facility] Address Unknown Phone Unavailable Allergies Active Description [...] EXTERNAL APPROACH Byron HINDS, Navin Price 12/25/2014 [id number] DELIVERY OF PRODUCTS OF CONCEPTION, EXTERNAL APPRO [...] Status Pt. Type Provider Facility Loc./Unit Complaint [id number] 02/14/2016 23:14:00 2015 14:13:00 DIS Outpatient Gómez HINDS, [facility] W.O8TN [id number] 12/25/2014 00:58:00 2014 15:38:00 DIS Inpatient Byron HINDS, [facility] W.5WH [id number] 12/17/2014 21:27:00 2014 05:23:00 DIS Outpatient Byron HINDS, [facility] W.2WW [id number] 10/18/2013 05:05:00 2013 14:30:00 DIS Inpatient Byron HINDS, [facility] W.4TN [id number] 10/11/2013 23:09:00 2013 02:12:00 DIS Emergency Byron HINDS, [facility] W.2WOBED [id number] 09/18/2013 16:28:00 2013 21:39:00 DIS Emergency Byron HINDS, Navin [facility] W.2WOBED [id number] 08/28/2013 12:28:00 2013 12:28:00 DIS Outpatient Flora HINDS, [facility] WJEEVAN
--- NOTE | 2016-07-07 01:10 | NUR ---
REPORT [facility] CALLED BACK FOR NURSE TO NURSE REPORT. REPORT GIVEN TO ELIZA FLAHERTY, TRAUMA RN
--- NOTE | 2016-07-07 01:15 | NUR ---
CHANNELER/DRESSING CHANNELER =3 SECONDS. MANUAL PRESSURE CONTINUES TO BE HELD.
[2016-07-07 01:40] VITALS: BP 144/95; PULSE 105; RESP 20; TEMP 98.4; O2SAT 100
--- NOTE | 2016-07-07 01:40 | NUR ---
DEPART PT IS ON EMS CART WITH EMS STAFF HOLDING MANUAL PRESSURE TO LACERATION SITE. TRANSFER COMPLETE. ONE ON ONE DUE TO CONTINUOUSLY HOLDING MANUAL PRESSURE FROM THE TIME SHE ARRIVED TILL EMS TOOK OVER.
== END 2016-07-07 01:40 | disposition short-term general hospital (02) ==
LOC: ED 00:25
DX: S61.512A Laceration without foreign body of left wrist, initial encounter (principal); X78.8XXA Intentional self-harm by other sharp object, initial encounter; Y93.89 Activity, other specified; Y92.009 Unspecified place in unspecified non-institutional (private) residence as the place of occurrence of the external cause; Y99.8 Other external cause status
CPT/HCPCS: 80048; 85025; 86850; 86900; 86901; 90471; 90715; 96360; 99291; J7030

== ENCOUNTER 2017-04-30 20:55 | Observation (INO) ==
--- NOTE | 2017-04-30 22:40 | Emergency Department Report ---
Nausea/Vomiting/Diarrhea HPI - General Chief complaint: Nausea/Vomiting/Diarrhea <Kerwin Rainey 05/01/17 02:24> Stated complaint: dehydrated <Kerwin Rainey 05/01/17 02:24> Time Seen by Provider: 04/30/17 22:30 <Kerwin Rainey 05/01/17 02:24> Source: patient <JuliannlilianeYvonne 04/30/17 22:41> Mode of arrival: ambulatory <Yvonne Rankin 04/30/17 22:41> Limitations: no limitations <Yvonne Rankin 04/30/17 22:41> - History of Present Illness HPI Narrative: Pt presents with a complaint of nausea vomiting for 2 days. Pt is 29 weeks with a positive flu swab and has been taking Tamiflu but has not been able to keep it down today. <Yvonne Rankin 04/30/17 22:41> MD complaint: nausea, vomiting <Yvonne Rankin 04/30/17 22:41> Onset (ago): day(s) <Yvonne Rankin 04/30/17 22:41> Exacerbating factors: eating, medication <Yvonne Rankin 04/30/17 22:41> Associated symptoms: fever/chills, headaches, nausea/vomiting <Yvonne Rankin 04/30/17 22:41> - Related Data Home Medications Medication Instructions Recorded Confirmed Acetaminophen 650 mg PO PRN PRN 12/25/16 04/30/17 Duloxetine [Cymbalta] 60 mg PO BID 01/19/17 04/30/17 HydrOXYzine [Atarax] 50 mg PO TID 01/19/17 04/30/17 Guaifenesin Oral Liq [Robitussin] 5 ml PO Q4H PRN 04/29/17 04/30/17 <Kerwin Rainey 05/01/17 02:24> Allergies Allergy/AdvReac Type Severity Reaction Status Date / Time codeine Allergy Unknown ITCHING Verified 04/30/17 23:29 <Kerwin Rainey 05/01/17 02:24> Review of Systems All systems: reviewed and negative except as stated <Yvonne Rankin 22:41> Constitutional: Reports: as per HPI <Yvonne Rankin 04/30/17 22:41> Respiratory: Reports: as per HPI <Yvonne Rankin 04/30/17 22:41> Gastrointestinal: Reports: as per HPI <Yvonne Rankin 04/30/17 22:41> Musculoskeletal: Reports: as per HPI <Yvonne Rankin 04/30/17 22:41> [facility] Patient Stated Medical History Migraine Yes Other Musculoskeletal Yes: FIBROMYALGIAS Depression Yes Post Menopausal No Now Yes: EDC 07/17/17 <Kerwin Rainey 05/01/17 02:24> Surgical History: Bilateral tympanostomy tubes (1999). Tonsillectomy/ Adenoidectomy (02/2006), f/u procedure due to bleeding (02/14/16). Mirena placed January 2015 <Yvonne Rankin 04/30/17 22:41> Family History: Family History Father , age 52 Heart problem possible? <Kerwin Rainey 05/01/17 02:24> - Social History Smoking status: Current every day smoker <Yvonne Rankin 04/30/17 22:41> Physical Exam - Limitations Limitations: no limitations <Yvonne Rankin 04/30/17 22:41> - General General appearance: alert, in no apparent distress <Yvonne Rankin 04/30 22:41> - Normal Exams: Head:: Normocephalic without trauma <Yvonne Rankin 04/30/17 22:41> Chest/Respirations:: Clear all ryder, with good airflow <Yvonne Rankin 04/30/17 22:41> Cardiovascular:: Regular rate and rhythm (tachycardic), without murmur or gallop <Yvonne Rankin 04/30/17 22:41> Abdomen:: Bowel sounds positive (gravid abdomen) <Yvonne Rankin 22:41> Musculoskeletal:: No tenderness, or deformity noted, good range of motion, all extremities <Yvonne Rankin 04/30/17 22:41> Integumentary:: No rashes <Yvonne Rankin - 04/30/17 22:41> Neurological:: Patient is alert, and oriented, cranial nerves, motor/sensory/ cerebellar, exams w/o gross deficits, to observation <Yvonne Rankin - 22:41> Psychiatric:: Patient exhibits, appropriate attention, emotion and affect < Yvonne Rankin - 04/30/17 22:41> Course Vital Signs Temperature 98.7 F 04/30/17 21:30 Pulse Rate 122 H 04/30/17 21:30 Respiratory Rate 22 04/30/17 21:30 Blood Pressure 126/61 04/30/17 21:30 Pulse Oximetry 98 04/30/17 21:30 Temperature 98.7 F 04/30/17 21:30 Pulse Rate 117 H 05/01/17 02:00 Respiratory Rate 18 05/01/17 02:00 Blood Pressure 101/50 05/01/17 02:00 Pulse Oximetry 99 05/01/17 02:00 <Kerwin Rainey - 05/01/17 02:24> Nausea/Vomiting/Diarrhea - MDM Narrative Medical decision making narrative: Labs were discussed in detail with the patient and family and questions are answered. Patient is given a 2nd 500 mL bolus of normal saline in the emergency Department. Patient remains tachycardic. Patient is discussed with Dr. Bowie who is covering for Dr. wang for [employer]. Dr. Bowie recommendation is to admit the patient in observation status for further evaluation and treatment at this time. Patient is given 10 mg of Reglan IV times one at her request. Patient is in agreement with the current plan of management. She is admitted to the hospital in improved condition. No further orders. Patient is known Influenza B+. FHT - 150 bpm. <Kerwin Rainey C - 05/01/17 02:24> Pt given a bolus of NS with IV zofran to be followed by Tylenol. <Yvonne Rankin 05/01/17 00:11> - Differential Diagnosis Likely: traveler's diarrhea, food poisoning, gastroenteritis, drug-induced nausea and vomiting, dehydration <Yvonne Rankin 04/30/17 22:41> - Lab Data Result diagrams: 05/01/17 01:15 05/01/17 01:15 <Kerwin Rainey - 05/01/17 02:24> Lab Results 05/01/17 05/01/17 05/01/17 Range/Units 01:15 01:15 01:22 WBC 11.9 H (4.5-11.0) T/MM3 RBC 2.95 L (4.00-5.20) M/MM3 Hgb 9.1 L D (12-16) GM/DL Hct 27.8 L D (36-46) % MCV 94.2 (80-100) UM3 MCH 30.8 (26-34) UUG MCHC 32.7 (31-37) GM/DL RDW Std Deviation 40.2 (36.9-50.2) FL Plt Count 263 (130-400) T/MM3 MPV 9.3 L (9.4-12.4) UM3 Immature Gran % (Auto) Not performed Neut % (Auto) Not performed Lymph % (Auto) Not performed [place] % (Auto) Not performed Eos % (Auto) Not performed Baso % (Auto) Not performed Neut # (Auto) Not performed Lymph # (Auto) Not performed [place] # (Auto) Not performed Eos # (Auto) Not performed Baso # (Auto) Not performed Abs Immat Gran (auto) Not performed Neutrophils % (Manual) 61.0 (33-66) % Band Neutrophils % 2.0 (0-6) % Lymphocytes % (Manual) 21.0 L (23-45) % Monocytes % (Manual) 16.0 H (0-9.0) % Neutrophils # (Manual) 7.3 (1.8-7.7) T/MM3 Band Neutrophils # 0.2 T/MM3 Lymphocytes # (Manual) 2.5 (1-4.8) T/MM3 Monocytes # (Manual) 1.9 H (0-0.8) T/MM3 Anisocytosis 1+ Microcytosis 1+ RBC Morph Comment Abnormal Turbidity < 20 (0-20) Sodium 140 (134-144) MEQ/L Potassium 3.2 L (3.6-5) MEQ/L Chloride 110 H (98-107) MEQ/L Carbon Dioxide 20 L (22-30) MEQ/L Anion Gap 10 (5-15) MEQ/L BUN 3.0 L (7-17) MG/DL Creatinine 0.4 L (0.7-1.2) MG/DL GFR Calculation 190 BUN/Creatinine Ratio 8 (6-26) RATIO Glucose 82 (65-110) MG/DL Calculated Osmolality 265 (261-280) MOSM/KG Calcium 8.3 L (8.4-10.2) MG/DL Total Bilirubin < 0.10 L (0.20-1.30) MG/DL Icterus Index < 2 (0-7) AST 28 (14-36) U/L ALT 36 (9-52) U/L Alkaline Phosphatase 70 (38-126) U/L Total Protein 6.2 L (6.3-8.2) G/DL Albumin 3.1 L (3.5-5.0) G/DL Globulin 3.1 (2.4-3.6) G/DL Albumin/Globulin Ratio 1.0 L (1.1-2.2) RATIO Specimen Hemolysis < 15 (0-25) Ur Collection Type Urine, void-cc/notcc Urine Color Yellow (YELLOW) Urine Clarity Clear Urine pH 7.0 (5.0-8.0) Ur Specific Reeder 1.010 L (1.015-1.025) Urine Protein Negative (NEGATIVE) Urine Glucose (UA) Negative (NEGATIVE) Urine Ketones Trace A (NEGATIVE) Urine Occult Blood Negative (NEGATIVE) Urine Nitrate Negative (NEGATIVE) Urine Bilirubin Negative (NEGATIVE) Urine Urobilinogen 0.2 (NORMAL) EU/DL Ur Leukocyte Esterase Negative (NEGATIVE) Urinalysis Comment Microscopic not ind. <Kerwin Rainey - 05/01/17 02:24> Lab Results 05/01/17 05/01/17 05/01/17 Range/Units 01:15 01:15 01:22 WBC 11.9 H (4.5-11.0) T/MM3 RBC 2.95 L (4.00-5.20) M/MM3 Hgb 9.1 L D (12-16) GM/DL Hct 27.8 L D (36-46) % MCV 94.2 (80-100) UM3 MCH 30.8 (26-34) UUG MCHC 32.7 (31-37) GM/DL RDW Std Deviation 40.2 (36.9-50.2) FL Plt Count 263 (130-400) T/MM3 MPV 9.3 L (9.4-12.4) UM3 Immature Gran % (Auto) Not performed Neut % (Auto) Not performed Lymph % (Auto) Not performed [place] % (Auto) Not performed Eos % (Auto) Not performed Baso % (Auto) Not performed Neut # (Auto) Not performed Lymph # (Auto) Not performed [place] # (Auto) Not performed Eos # (Auto) Not performed Baso # (Auto) Not performed Abs Immat Gran (auto) Not performed Neutrophils % (Manual) 61.0 (33-66) % Band Neutrophils % 2.0 (0-6) % Lymphocytes % (Manual) 21.0 L (23-45) % Monocytes % (Manual) 16.0 H (0-9.0) % Neutrophils # (Manual) 7.3 (1.8-7.7) T/MM3 Band Neutrophils # 0.2 T/MM3 Lymphocytes # (Manual) 2.5 (1-4.8) T/MM3 Monocytes # (Manual) 1.9 H (0-0.8) T/MM3 Anisocytosis 1+ Microcytosis 1+ RBC Morph Comment Abnormal Turbidity < 20 (0-20) Sodium 140 (134-144) MEQ/L Potassium 3.2 L (3.6-5) MEQ/L Chloride 110 H (98-107) MEQ/L Carbon Dioxide 20 L (22-30) MEQ/L Anion Gap 10 (5-15) MEQ/L BUN 3.0 L (7-17) MG/DL Creatinine 0.4 L (0.7-1.2) MG/DL GFR Calculation 190 BUN/Creatinine Ratio 8 (6-26) RATIO Glucose 82 (65-110) MG/DL Calculated Osmolality 265 (261-280) MOSM/KG Calcium 8.3 L (8.4-10.2) MG/DL Total Bilirubin < 0.10 L (0.20-1.30) MG/DL Icterus Index < 2 (0-7) AST 28 (14-36) U/L ALT 36 (9-52) U/L Alkaline Phosphatase 70 (38-126) U/L Total Protein 6.2 L (6.3-8.2) G/DL Albumin 3.1 L (3.5-5.0) G/DL Globulin 3.1 (2.4-3.6) G/DL Albumin/Globulin Ratio 1.0 L (1.1-2.2) RATIO Specimen Hemolysis < 15 (0-25) Ur Collection Type Urine, void-cc/notcc Urine Color Yellow (YELLOW) Urine Clarity Clear Urine pH 7.0 (5.0-8.0) Ur Specific Reeder 1.010 L (1.015-1.025) Urine Protein Negative (NEGATIVE) Urine Glucose (UA) Negative (NEGATIVE) Urine Ketones Trace A (NEGATIVE) Urine Occult Blood Negative (NEGATIVE) Urine Nitrate Negative (NEGATIVE) Urine Bilirubin Negative (NEGATIVE) Urine Urobilinogen 0.2 (NORMAL) EU/DL Ur Leukocyte Esterase Negative (NEGATIVE) Urinalysis Comment Microscopic not ind. <DoniYvonne pratt Keely 05/01/17 00:11> - EKG Data EKG #1 EKG results narrative: Sinus tachycardia. 116 bpm. No STEMI. <Kerwin Rainey 05/01/17 02:24> Disposition Clinical Impression: Influenza B, Tachycardia <Kerwin Rainey 05/01/17 02:24> Condition: Stable <Kerwin Rainey 05/01/17 02:24> Instructions: <Kerwin Rainey 05/01/17 02:24> Prescriptions: No Action Duloxetine [Cymbalta] 60 mg PO BID HydrOXYzine [Atarax] 50 mg PO TID Acetaminophen 650 mg PO PRN PRN PRN Reason: Pain Guaifenesin Oral Liq [Robitussin] 5 ml PO Q4H PRN PRN Reason: Cough <Kerwin Rainey 05/01/17 02:24> Referrals: Dahiana Ballesteros PA [Family Provider] - <Kerwin Rainey 02:24> Forms: <Kerwin Rainey 05/01/17 02:24> Time of Disposition: 01:45 (Admit. Dr. Bowie. ) <Kerwin Rainey 05/01/17 02 :24> - Seen By: physician <Kerwin Rainey 05/01/17 02:24>
[2017-04-30] MEDS ORDERED: ACETAMINOPHEN 500 MG TABLET PO PRN (22:41)
[2017-04-30] MEDS ORDERED: NS 1,000 ML IV ONE (22:41)
[2017-04-30] MEDS ORDERED: ONDANSETRON 4 MG/2 ML INJECTION IVP ONE (22:41)
[2017-04-30] MEDS ORDERED: SALINE FLUSH 10ml SYRINGE IVF PRN (22:41)
[2017-05-01] MEDS ORDERED: NS 1,000 ML IV ONE (01:02)
[2017-05-01] MEDS ORDERED: METOCLOPRAMIDE 10mg/2ml INJECTION IVP ONE (01:59)
[2017-05-01 02:44] VITALS: BMI 28.0
[2017-05-01] MEDS: LR 1,000 ML IV SCH ×2 (02:49→09:31)
[2017-05-01] MEDS ORDERED: PROMETHAZINE 12.5 MG PR PRN (02:55)
[2017-05-01] MEDS ORDERED: PROCHLORPERAZINE 10 MG/2 ML INJECTION IVP PRN (03:09)
[2017-05-01] MEDS ORDERED: ACETAMINOPHEN 500 MG TABLET PO PRN (03:12)
[2017-05-01 08:15] VITALS: BP 109/65; PULSE 108; RESP 16; TEMP 98; O2SAT 98
[2017-05-01] MEDS ORDERED: BENZOCAINE/MENTHOL SORE THROAT LOZENGE MM PRN (13:45)
--- NOTE | 2017-05-02 07:55 | Progress Note ---
DATE: 05/01/2017 This is an outpatient note for a patient of Dr. Collins's. Ms. Shaw is a 26-year-old multigravida at approximately 29 weeks gestational age who presented to [facility] Emergency Department last night with nausea/vomiting. She was found to be tachycardic with her heart rate running in the 120s. This persisted for about 5 hours. She had had nausea, vomiting and cough for a [id number] and was diagnosed with influenza B. She had been started on Tamiflu the night before but was unable to keep it down. Upon discussion with the emergency department doctor, an EKG was obtained that was normal. The patient was admitted as an outpatient. She has improved since then. She is running heart rate between 90 and 108. heart tones are reactive and reassuring on NST at this time. She has been able to eat breakfast. Still has one episode of diarrhea but has not had any vomiting since being admitted to the hospital. We will dismiss her today and encouraged her to continue her Tamiflu, call if symptoms are not improving. She is scheduled for followup with Dr. Collins in about 2 weeks, but I have encouraged her to call with any concerns. JOSE
== END 2017-05-01 15:50 | disposition home or self-care (01) ==
LOC: SRG 20:55 → ED 20:55 → SRG 05-01 02:38
PROVIDERS: ADMIT Obstetrics & Gynecology; ATTEND Obstetrics & Gynecology

== ENCOUNTER 2017-06-30 06:00 | Inpatient (IN) ==
[2017-06-30] MEDS ORDERED: SALINE FLUSH 10ml SYRINGE IV PRN (16:22)
[2017-06-30] MEDS ORDERED: CARBOPROST 250 MCG/ML INJECTION IM PRN (16:22)
[2017-06-30] MEDS ORDERED: MAG-AL + SIM ORAL LIQUID 30ml PO PRN (16:22)
[2017-06-30] MEDS ORDERED: LIDOCAINE 1% (10mg/ml) 2mL INJ PF SDV ID PRN (16:22)
[2017-06-30] MEDS ORDERED: CALCIUM CARBONATE Chewable 500mg TABLET PO PRN (16:22)
[2017-06-30] MEDS ORDERED: ZOLPIDEM 5 MG TABLET PO PRN (16:22)
[2017-06-30] MEDS ORDERED: METHYLERGONOVINE 0.2 MG/ML INJECTION IM PRN (16:22)
[2017-06-30] MEDS ORDERED: ACETAMINOPHEN 500 MG TABLET PO PRN (16:22)
[2017-06-30] MEDS: LR 1,000 ML IV PRN (17:05)
[2017-06-30 20:00] VITALS: BMI 28.3
[2017-06-30] MEDS ORDERED: Oxycodone/Acetaminophen 5/325 1 TAB PO PRN (20:25)
[2017-07-01] MEDS ORDERED: D5LR 1,000 ML IV PRN (02:39)
[2017-07-01] MEDS ORDERED: OXYTOCIN DRIP 30 UNIT/500 ML ML IV PRN ×2 (02:39→04:00)
[2017-07-01] MEDS: LR 1,000 ML IV PRN (03:35)
[2017-07-01] MEDS ORDERED: DiphenhydrAMINE 50 MG/ML INJECTION IVP PRN (08:17)
[2017-07-01] MEDS ORDERED: NALOXONE 0.4 MG/ML INJECTION IVP PRN (08:17)
[2017-07-01] MEDS ORDERED: ROPIVACAINE 1% 10MG/ML INJ 200 MG, SUFentanil 50 MCG in NS 100 ML EPI PRN (08:17)
[2017-07-01] MEDS ORDERED: ONDANSETRON 4 MG/2 ML INJECTION IVP PRN (08:17)
--- NOTE | 2017-07-01 08:21 | Anesthesia Preoperative Report ---
Anesthesia Epidural/Spinal Rec - Date and Time Date: 07/01/17 Preoperative Diagnosis: Active labor Procedure: Labor Epidural Plan: Epidural - Vital Signs NPO since: 0600 /Para: P:3 Heart Rate: 63 (inches) - Medictaions & Allergies Inpatient Medications: Current Medications Acetaminophen (Tylenol) 500 - 1,000 mg PO Q4H PRN PRN Reason: Pain Al Hydroxide/Mg Hydroxide (Maalox Plus) 30 ml PO Q3H PRN PRN Reason: Indigestion Calcium Carbonate (Tums) 500 - 1,000 mg PO Q2H PRN PRN Reason: Indigestion Carboprost Tromethamine (Hemabate) 250 mcg IM O PRN PRN Reason: .Downtime Diphenhydramine HCl (Benadryl) 25 - 50 mg IVP Q3H PRN PRN Reason: Itching Lactated Ringer's (Lactated Ringers) 1,000 mls @ 999 mls/hr IV .Q1H1M PRN Last Admin: 07/01/17 03:35 Dose: 999 mls/hr Dextrose/Lactated Ringer's (Dextrose 5%-Lactated Ringers) 1,000 mls @ 125 mls/ hr IV .Q8H PRN PRN Reason: Labor Last Admin: 07/01/17 04:02 Dose: 125 mls/hr Oxytocin (Pitocin Drip) 30 unit in 500 mls @ 2 mls/hr IV .Q24H PRN; Protocol PRN Reason: Induction/Augmentation Last Admin: 07/01/17 04:02 Dose: 2 mls/hr Ropivacaine 200 mg/ Sufentanil Citrate 50 mcg/ Sodium Chloride 121 mls @ 8 mls/ hr EPI PRN PRN PRN Reason: Protocol Lidocaine HCl (Xylocaine-Mpf 1% Vial) 0.2 mg ID O PRN PRN Reason: IV Start Methylergonovine Maleate (Methergine) 0.2 mg IM O PRN Misoprostol (Cytotec) 800 mcg [place] ONCE PRN Naloxone HCl (Narcan) 0.1 mg IVP Q2M PRN PRN Reason: Respiratory distress Ondansetron HCl (Zofran) 4 mg IVP Q6H PRN PRN Reason: Nausea &/or vomiting Oxycodone/Acetaminophen (Percocet 5/325) 1 tab PO Q4H PRN PRN Reason: Pain Last Admin: 06/30/17 20:30 Dose: 1 tab Sodium Chloride (Iv Flush) 10 - 80 ml IV PRN PRN PRN Reason: Flushing Zolpidem Tartrate (Ambien) 5 mg PO O PRN PRN Reason: Insomnia Last Admin: 06/30/17 21:54 Dose: 5 mg Allergies/Adverse Reactions: Allergies Allergy/AdvReac Type Severity Reaction Status Date / Time codeine Allergy Unknown ITCHING Verified 06/14/17 11:02 - Home Medications Home Medications: Home Medications Medication Instructions Recorded Confirmed Type Acetaminophen 650 mg PO PRN PRN 12/25/16 06/30/17 History Duloxetine [Cymbalta] 60 mg PO BID 01/19/17 06/30/17 History HydrOXYzine [Atarax] 50 mg PO TID 01/19/17 06/30/17 History Levemir FlexTouch (insulin 8 unit SQ HS ml 05/30/17 06/30/17 History detemir) 100 unit/mL (3 mL) PEN - Medical History Neuro/Musculoskeletal: Reports: Depression, Other (FIBROMYALGIAS) Renal/Endocrine: Reports: Other (Gestational Diabetes controlled with insulin) Other History: Reports: Now (EDC 07/17/17) - Surgical History HEENT Surgeries: Reports: Tonsillectomy Reproductive Surgery/Treatment: DENIES: Section, Hysterectomy, Tubal Ligation Anesthesia Reactions: None Hx Family Anesthesia Reaction: No History of Motion Sickness: No - Social History Smoking Status: Current some day smoker Packs per day: 0.5 Pack-years: 2 Second Hand Exposure: Yes Substance Use Type: does not use Alcohol Intake: former Alcohol Intake Frequency: does not drink Hx Chewing Tobacco Use: No - Pertinent Findings Lab Data: CBC and BMP 06/30/17 16:45 EKG Rhythm: Normal Sinus Rhythm - Physical Exam Respiratory Exam: lungs clear Cardiovascular Exam: regular rate and rhythm - Airway Assessment Mallampati Score: II TMD: 3 Fingerbreadths Neck Extension: good Overall Assessment: no airway concerns - ASA ASA Score: 2 - Discussion Discussion: Discussed risks/options/alternatives of anesthesia and questions answered. Patient consents. Nursing pain assessment noted. Anesthesia Discussion: spouse Attestation Statement: Prior to the delivery of any anesthetic medication, I examined the patient, developed the plan, obtained the patient's consent and discussed the risk and benefits of the procedure with the patient/guardian.
[2017-07-01] MEDS ORDERED: CALCIUM CARBONATE Chewable 500mg TABLET PO PRN (11:08)
[2017-07-01] MEDS ORDERED: HYDROCORTISONE 2.5% CREAM 30gm RECTALLY PRN (11:08)
[2017-07-01] MEDS ORDERED: DiphenhydrAMINE 25 MG CAPSULE PO PRN (11:08)
[2017-07-01] MEDS ORDERED: ACETAMINOPHEN 500 MG TABLET PO PRN (11:08)
[2017-07-01] MEDS ORDERED: MAG-AL + SIM ORAL LIQUID 30ml PO PRN (11:08)
--- NOTE | 2017-07-01 11:33 | OB/GYN Procedure Note ---
Delivery date: 07/01/17 Events: Gestational Diabetes Intrapartal events: Abruptio Placenta Induction method: per pitocin protocol Delivery augmentation: rupture of membranes Delivery monitor: external FHT, external uterine Route of delivery: Laceration description: Labial Delivery repair: chromic Estimated blood loss (mL): 400 Anesthesia type: Epidural Disposition: floor - Baby 1 presentation: Vertex position: Vertex-by exam Placenta delivery description: Spontaneous cord vessel description: 3 Vessels at 1 minute: 8 at 5 minutes: 9
[2017-07-01] MEDS: IBUPROFEN 800 MG TABLET PO PRN ×2 (13:07→20:51)
[2017-07-01] MEDS: Oxycodone/Acetaminophen 5/325 1 TAB PO PRN ×3 (13:07→20:49)
--- NOTE | 2017-07-01 15:25 | Labor and Delivery Note ---
DATE 07/01/2017 A spontaneous vaginal delivery of a viable female with Apgars of 8/9 that weighed 3243 grams and had the name of Andreea. This was a spontaneous vaginal delivery over an intact perineum with epidural anesthesia. Brandie underwent cervical ripening with a Alvarez bulb and a Pitocin induction of labor that was augmented by artificial rupture of membranes. She was noted to be 4-5 cm at the time of rupture of membranes. That was at 8:20 a.m. and was noted to be complete and +2 by 10:36 a.m. She pushed for approximately eight minutes and three contractions. Delivery was complicated by abruptio placenta. She during the labor process delivered increased bloody show and at the time of delivery, port wine fluid was noted. This was different than was noted at the time of amniotomy. The infant's mouth and nares were suctioned, the cord was clamped and cut, and the airplane tube builder was called to come to assess the baby. Brandie was induced at 37 weeks gestational age for poorly controlled diabetes. JOSE
--- NOTE | 2017-07-01 17:08 | Anesthesia Postoperative Note ---
- Date and Time Date: 07/01/17 Time: 17:08 - Status Patient Participated in Evaluation: Patient Participated in Person Vital Signs: Temperature 97.8 F 07/01/17 16:00 Pulse Rate 93 07/01/17 16:00 Respiratory Rate 18 07/01/17 16:00 Blood Pressure 124/60 07/01/17 16:00 Pulse Oximetry 97 07/01/17 16:00 Respiratory Function: Airway Patent Cardiovascular Function: Regular Pulse Mental Status: Alert and Oriented Pain Intensity: 0 Hydration: Taking PO Fluids Complications During Recover: None Apparent - Follow-Up Instructions Instructions: Per Surgeon
[2017-07-02] MEDS: Oxycodone/Acetaminophen 5/325 1 TAB PO PRN ×4 (04:01→21:54)
[2017-07-02] MEDS ORDERED: DOCUSATE CALCIUM 240 MG CAPSULE PO SCH (09:00)
[2017-07-02] MEDS: FERROUS SULFATE 324 MG TABLET PO SCH (09:28)
[2017-07-02] MEDS: IBUPROFEN 800 MG TABLET PO PRN ×2 (09:28→21:53)
[2017-07-02] MEDS: PRENATAL VITAMIN TABLET PO SCH (09:28)
--- NOTE | 2017-07-02 13:01 | OB/GYN Progress Note ---
OB-PP Progress Note - General PPD1 Maternal Group B Strep: Negative Maternal blood type: A+ Maternal Rubella Status: Immune - Subjective Date: 07/02/17 Lochia: Minimal Pain: controlled Voiding: voiding - Objective Vital Signs: Last Vital Signs Temp 97.9 F 07/02/17 08:10 Pulse 73 07/02/17 08:10 Resp 18 07/02/17 08:10 BP 118/53 07/02/17 08:10 Pulse Ox 97 07/02/17 08:10 General: alert and oriented Abdomen: fundus firm, non-tender Extremities: non-tender Laboratory: Laboratory Results - last 24 hr 07/02/17 06:25 Glucometer 84 - Assessment Assessment: Comments: A2 GDM with normal FBS today. - Plan Plan: routine care She desires to stay until tomorrow.
[2017-07-02 20:31] VITALS: O2SAT 98
[2017-07-03] MEDS: IBUPROFEN 800 MG TABLET PO PRN ×2 (07:10→15:52)
[2017-07-03] MEDS: Oxycodone/Acetaminophen 5/325 1 TAB PO PRN ×3 (07:10→15:52)
--- NOTE | 2017-07-03 09:34 | OB/GYN Progress Note ---
OB-PP Progress Note - General PPD2 Maternal Group B Strep: Negative Maternal blood type: A+ Maternal Rubella Status: Immune - Subjective Date: 07/03/17 Lochia: Minimal Pain: controlled Voiding: voiding - Objective Vital Signs: Last Vital Signs Temp 97.9 F 07/03/17 08:00 Pulse 87 07/03/17 08:00 Resp 15 07/03/17 08:00 BP 110/57 07/03/17 08:00 Pulse Ox 98 07/02/17 20:00 General: alert and oriented Abdomen: fundus firm, non-tender Extremities: non-tender - Assessment Assessment: , Anemia Comments: GDM - Plan Plan: routine care, discharge home, continue PNV
[2017-07-03] MEDS: PRENATAL VITAMIN TABLET PO SCH (10:49)
[2017-07-03] MEDS: FERROUS SULFATE 324 MG TABLET PO SCH (10:49)
[2017-07-03 15:49] VITALS: BP 118/66; PULSE 88; RESP 18; TEMP 98.3
== END 2017-07-03 16:08 | disposition home or self-care (01) | DRG 774 ==
LOC: MC 16:18
PROVIDERS: ADMIT Obstetrics & Gynecology; ATTEND Obstetrics & Gynecology